=== PATIENT | female | born 1965 | race Caucasian/White ===

== ENCOUNTER → 2016-04-11 | Outpatient (CLI) | payer OTHER ==
[~2016-04-11] MED LIST: ASPI-84 PO; LISI-556 PO; MTP25TSR PO; OMEP20CA6 PO
--- NOTE | 2016-04-14 11:49 | Diagnostic Imaging Report ---
EXAMINATION: Bilateral screening mammogram with a Computer Aided Detection (CAD) system. INDICATION: Screening. PERSONAL HISTORY: No current complaints stated on the questionnaire. COMPARISON: 02/02/2015. FINDINGS: The breasts are composed of heterogeneously dense parenchyma which may decrease mammographic sensitivity. The parenchymal densities are slightly less dense compared to the previous exams overall. There are scattered punctate calcifications seen. There is question of an architectural distortion seen in the lateral aspect of the left breast. The change in appearance could be secondary to the decreased parenchymal density rather than true new development of a lesion. The right breast demonstrates no definite change. IMPRESSION: Focal compression view and ultrasound evaluation would be recommended for questioned architectural distortion in the lateral inferior aspect of the left breast. ACR BI-RADS Category 0: Incomplete. (Needs additional imaging evaluation). Result letter will be mailed to the patient. Note: At least 10% of breast cancer is not imaged by mammography. Dictated by: Dictated on workstation # [id number]
== END ==
LOC: RAD 13:13
PROVIDERS: ATTEND Obstetrics & Gynecology
DX: Z12.31 Encounter for screening mammogram for malignant neoplasm of breast (principal)

== ENCOUNTER → 2016-04-29 | Outpatient (CLI) | payer OTHER ==
--- OUTSIDE RECORDS SUMMARY | 2016-04-29 07:39 | XMS REPORT | Continuity of Care Document ---
Author Author [facility] Organization [facility] Address Unknown Phone Unavailable Allergies Active Description Code Type Severity Reaction Onset Reported/Identified Relationship to Patient Clinical Status Yes No Known Drug Allergies [id number] Drug Allergy Unknown N/ A 12/16/2009 Medications Problems Date Dx Coded Attending Type Code Diagnosis Diagnosed By 01/08/2015 TYRA XIAO, PIA Hernandez Ot M25.511 02/16/2015 SHELTON PAULA Ot Z12.31 04/11/2016 Ot V76.12 OTH SCREEN MAMMO-MALIGN NEOPLASM OF [place] 04/11/2016 TIFFANIE SANCHEZ DO Ot V76.12 OTH SCREEN MAMMO-MALIGN NEOPLASM OF [place] 04/11/2016 SHELTON PAULA Ot V76.12 OTH SCREEN MAMMO-MALIGN NEOPLASM OF [place] 04/11/2016 PIA MARY MD Ot M25.511 PAIN IN RIGHT SHOULDER 04/11/2016 SHELTON PAULA Ot Z12.31 ENCNTR SCREEN MAMMOGRAM FOR MALIGNANT NE 04/14/2016 TIFFANIE SANCHEZ DO Ot Z12.31 ENCNTR SCREEN MAMMOGRAM FOR MALIGNANT NE 04/14/2016 TIFFANIE SANCHEZ DO Ot Z12.31 ENCNTR SCREEN MAMMOGRAM FOR MALIGNANT NE Procedures Results Encounters ACCT No. Visit Date/Time Discharge Status Pt. Type Provider Facility Loc./Unit Complaint [id number] 02/02/2015 14:16:00 2014 23:59:59 CLS Outpatient SHELTON PAULA [facility] RAD SCREENING [id number] 12/22/2014 12:08:00 2014 23:59:59 CLS Outpatient PIA MARY MD [facility] RAD PAIN R SHOULDER [id number] 12/23/2013 07:26:00 2013 23:59:59 CLS Outpatient SHELTON PAULA [facility] RAD ROUTINE [id number] 09/17/2012 07:27:00 2012 23:59:59 CLS Outpatient TIFFANIE SANCHEZ DO [facility] RAD SCREENING [id number] 04/11/2016 13:13:00 ACT Outpatient TIFFANIE SANCHEZ DO [facility] RAD SCREENING [id number] 06/13/2011 15:29:00 Document Registration
--- NOTE | 2016-04-29 18:53 | Diagnostic Imaging Report ---
EXAMINATION: Left breast diagnostic mammogram. The current study was also evaluated with a Computer Aided Detection (CAD) system. INDICATION: Asymmetries along the outer and inferior aspects of the left breast. FINDINGS: Persistent asymmetry along the outer aspect of the left breast is seen with focal compression view. At the inferior aspect of the left breast, compression views demonstrate no definitive underlying lesion. IMPRESSION: Persistent asymmetry in the outer aspect of the left breast is seen. Ultrasound evaluation is pending. ACR BI-RADS Category 0: Incomplete. (Needs additional imaging evaluation). Result letter will be mailed to the patient. Note: At least 10% of breast cancer is not imaged by mammography. Dictated by: Dictated on workstation # [id number]
--- NOTE | 2016-04-29 19:01 | Diagnostic Imaging Report ---
Left breast ultrasound. INDICATION: Lateral and inferior breast asymmetries seen on mammography. FINDINGS: The 4 quadrants under evaluation of the left breast was scanned with no underlying abnormality seen. IMPRESSION: Negative study. Asymmetry seen in the outer aspect of the left breast is likely related to summation artifact of the relatively dense background parenchyma. Followup mammogram in 6 months is recommended to ensure no adverse development. ACR BI-RADS Category 3: Probably benign findings. Dictated by: Dictated on workstation # [id number]
== END ==
LOC: RAD 07:35
PROVIDERS: ATTEND Obstetrics & Gynecology
DX: R92.8 Other abnormal and inconclusive findings on diagnostic imaging of breast (principal)
CPT/HCPCS: 76641

== ENCOUNTER → 2016-05-02 | Outpatient (CLI) | payer OTHER ==
--- OUTSIDE RECORDS SUMMARY | 2016-05-02 12:46 | XMS REPORT | Continuity of Care Document ---
Author Author [facility] Organization [facility] Address Unknown Phone Unavailable Allergies Active Description Code Type Severity Reaction Onset Reported/Identified Relationship to Patient Clinical Status Yes No Known Drug Allergies [id number] Drug Allergy Unknown N/ A 12/16/2009 Medications Problems Date Dx Coded Attending Type Code Diagnosis Diagnosed By 01/08/2015 TYRA XIAO, PIA Hernandez Ot M25.511 02/16/2015 SHELTON PAULA Ot Z12.31 04/11/2016 Ot V76.12 OTH SCREEN MAMMO-MALIGN NEOPLASM OF [place] 04/11/2016 TIFFANIE SANCHEZ DO Ot V76.12 OTH SCREEN MAMMO-MALIGN NEOPLASM OF [place] 04/11/2016 SHELTON PAULA Ot V76.12 OTH SCREEN MAMMO-MALIGN NEOPLASM OF [place] 04/11/2016 TYRA XIAO, PIA Hernandez Ot M25.511 PAIN IN RIGHT SHOULDER 04/11/2016 SHELTON PAULAP Ot Z12.31 ENCNTR SCREEN MAMMOGRAM FOR MALIGNANT NE 04/14/2016 TIFFANIE SANCHEZ DO C Ot Z12.31 ENCNTR SCREEN MAMMOGRAM FOR MALIGNANT NE 04/14/2016 ROSSANA SANCHEZ DOA C Ot Z12.31 ENCNTR SCREEN MAMMOGRAM FOR MALIGNANT NE 04/29/2016 Ot V76.12 OTH SCREEN MAMMO-MALIGN NEOPLASM OF [place] 04/29/2016 TIFFANIE SANCHEZ DO C Ot V76.12 OTH SCREEN MAMMO-MALIGN NEOPLASM OF [place] 04/29/2016 SHELTON PAULA Ot V76.12 OTH SCREEN MAMMO-MALIGN NEOPLASM OF [place] 04/29/2016 TYRA XIAO, PIA Hernandez Ot M25.511 PAIN IN RIGHT SHOULDER 04/29/2016 SHELTON PAULAP Ot Z12.31 ENCNTR SCREEN MAMMOGRAM FOR MALIGNANT NE 04/29/2016 TIFFANIE SANCHEZ DO Ot Z12.31 ENCNTR SCREEN MAMMOGRAM FOR MALIGNANT NE 04/30/2016 TIFFANIE SANCHEZ DO Ot R92.8 OTH ABN AND INCONCLUSIVE FINDINGS ON DX Procedures Results Encounters ACCT No. Visit Date/Time Discharge Status Pt. Type Provider Facility Loc./Unit Complaint [id number] 02/02/2015 14:16:00 2014 23:59:59 CLS Outpatient SHELTON PAULA [facility] RAD SCREENING [id number] 12/22/2014 12:08:00 2014 23:59:59 CLS Outpatient PIA MARY MD [facility] RAD PAIN R SHOULDER [id number] 12/23/2013 07:26:00 2013 23:59:59 CLS Outpatient SHELTON PAULA [facility] RAD ROUTINE [id number] 09/17/2012 07:27:00 2012 23:59:59 CLS Outpatient TIFFANIE SANCHEZ DO [facility] RAD SCREENING [id number] 04/29/2016 07:35:00 ACT Outpatient TIFFANIE SANCHEZ DO [facility] RAD ABNORMAL MAMMO [id number] 04/11/2016 13:13:00 ACT Outpatient TIFFANIE SANCHEZ DO [facility] RAD SCREENING [id number] 06/13/2011 15:29:00 Document Registration
--- NOTE | 2016-05-05 10:52 | ECHOCARDIOGRAPHY REPORT ---
PROCEDURE PHYSICIAN: BRADEN CADE DATE OF PROCEDURE: 05/02/2016 TWO DIMENSIONAL ECHOCARDIOGRAM REPORT PRIMARY PHYSICIAN: OTHER PHYSICIAN: REFERRING PHYSICIAN: Dr. Hutchison ORDERING PHYSICIAN: INDICATION FOR THE PROCEDURE: Hypertension. MEASUREMENTS DERIVED VALUES LV DIAMETER (LAX) NORMALS NORMALS Diastolic 4.5 (3.6-5.2) Eject. Fract. 60% (60%+/-6%) Systolic (2.3-3.9) Diastolic Vol. % Shortening (0.22-0.42) Systolic Vol. Aortic Root IVS THICKNESS Diastolic 0.8 (0.6-1.1) LVPW THICKNESS Diastolic 0.9 (0.6-1.1) LA DIAMETER Systolic 3.2 (2.1-3.7) FINDINGS: 1. Technical quality is good. 2. The left ventricle is normal in size with normal contractility. Systolic function appeared to be normal. Estimated ejection fraction 60%. 3. The left atrium is normal in size. No clot or thrombus were seen within the left atrium. 4. The right atrium and right ventricle are normal in size. No clot or thrombus were seen within the right side. 5. Mitral valve is normal in morphology with mild mitral regurgitation noted by color Doppler flow. No mitral valve prolapse. No mitral valve stenosis. 6. Aortic valve is trileaflet with normal opening and closing pattern. No significant aortic stenosis or regurgitation was seen. 7. Tricuspid valve is normal in morphology with mild tricuspid regurgitation noted by color Doppler flow. Doppler across tricuspid valve estimated pulmonary artery pressure of 17+ right atrial pressure. 8. Pulmonic valve is functioning normally. 9. No pericardial effusion. IN CONCLUSION: 1. Normal left ventricular size and systolic function. Estimated ejection fraction 60%. 2. Mild mitral and tricuspid regurgitation. 3. Estimated pulmonary artery pressure of 25 mmHg. Job ID: [id number] Dictated Date: 05/05/2016 08:05:36 Adjunct Teacher Date: 05/05/2016 10:49:16 / [email or web address]
== END ==
LOC: CARD 12:44
PROVIDERS: ATTEND Physician Assistant
DX: K21.9 Gastro-esophageal reflux disease without esophagitis (principal); I10 Essential (primary) hypertension; E78.2 Mixed hyperlipidemia; R00.2 Palpitations
CPT/HCPCS: 93306

== ENCOUNTER → 2016-09-04 | Outpatient (CLI) | payer OTHER | DX: R51 Headache (principal) ==

== ENCOUNTER 2016-10-21 08:49 | Outpatient (CLI) | payer OTHER ==
[~2016-10-21] VITALS: Ht 160 cm; Wt 64.0 kg
[2016-10-22] MEDS ORDERED: VITA150T PO ×2 (09:32)
[2016-10-22] MEDS ORDERED: LEVO125T6 PO ×2 (09:32)
[2016-10-22] MEDS ORDERED: CHOL10007 PO ×2 (09:32)
[2016-10-22] MEDS ORDERED: KRIL500C PO ×2 (09:32)
[2016-10-22] MEDS ORDERED: FENO54TA PO ×2 (09:32)
[2016-10-22] MEDS ORDERED: MAGN250T35 PO ×2 (09:32)
[2016-10-22] MEDS ORDERED: CETI5TAB6 PO ×2 (09:32)
== END 2016-10-21 12:44 ==
LOC: PREOP 08:49
PROVIDERS: ATTEND Surgery
DX: Z01.818 Encounter for other preprocedural examination (principal); Z12.11 Encounter for screening for malignant neoplasm of colon; K21.9 Gastro-esophageal reflux disease without esophagitis

== ENCOUNTER 2016-10-22 09:00 | Day surgery (SDC) | payer OTHER ==
[~2016-10-22] VITALS: Ht 160 cm; Wt 64.0 kg
[2016-10-22] MEDS ORDERED: LIDOCAINE JELLY 2% (XYLOCAINE) 5 ML TUBE MM PRN (09:15)
[2016-10-22] MEDS ORDERED: HURRICAINE EXT TUBE (BENZOCAINE) XX PRN (09:15)
[2016-10-22 09:25] VITALS: BP 151/99
[2016-10-22] MEDS ORDERED: KRIL500C PO ×2 (09:32)
[2016-10-22] MEDS ORDERED: CETI5TAB6 PO ×2 (09:32)
[2016-10-22] MEDS ORDERED: VITA150T PO ×2 (09:32)
[2016-10-22] MEDS ORDERED: FENO54TA PO ×2 (09:32)
[2016-10-22] MEDS ORDERED: LEVO125T6 PO ×2 (09:32)
[2016-10-22] MEDS ORDERED: MAGN250T35 PO ×2 (09:32)
[2016-10-22] MEDS ORDERED: CHOL10007 PO ×2 (09:32)
[2016-10-22] MEDS: NS IV 500 ML 500 ML IV PRN ×2 (09:39→12:00)
--- NOTE | 2016-10-22 10:13 | Conscious Sedation/ASA ---
Conscious Sedation Pre-Proced Time Reviewed: 09:30 ASA Class: 2 Airway Mallampati Classification: (tangirnaq appropriate class) I. II. III, IV Lungs Heart ASA score ASA 1: a normal healthy patient ASA 2: a patient with a mild systemic disease (mid diabetes, controlled hypertension, obesity ASA 3: a patient with a severe systemic disease that limits activity (angina , COPD, prior Myocardial infarction) ASA 4: a patient with an incapacitating disease that is a constant threat to life (CHF, renal failure) ASA 5: a moribund patient not expected to survive 24 hrs. (ruptured aneurysm) ASA 6: a declared brain patient whose organs are being harvested. For emergent operations, add the letter E after the classification Grade 2 Sedation Plan: Analgesia, Amnesia, Plan communicated to team members, Discussed options with patient/fam, Discussed risks with patient/fam Note The patient is an appropriate candidate to undergo the planned procedure, sedation, and anesthesia. The patient immediately re-assessed prior to indication. MICHAEL HAILE MD Oct 22, 2016 10:13 am
--- NOTE | 2016-10-22 10:14 | Progress Note-Pre Operative ---
Pre-Operative Progress Note H&P Reviewed The H&P was reviewed, patient examined and no changes noted. Date Seen by Provider: Oct 22, 2016 Time Seen by Provider: :30 Date H&P Reviewed: Oct 22, 2016 Time H&P Reviewed: :30 Pre-Operative Diagnosis: GERD, screening MICHAEL HAILE MD Oct 22, 2016 10:14 am
[2016-10-22] MEDS ORDERED: HYDROcodone/APAP 5 MG/325 MG (LORTAB) TAB PO PRN (10:15)
[2016-10-22] MEDS ORDERED: morphine INJ 10 MG/ML 1ML (SYR OR VIAL) IV PRN (10:15)
[2016-10-22] MEDS ORDERED: ACETAMINOPHEN 325 MG TABLET/CAPLET (TYLENOL) PO PRN (10:15)
[2016-10-22] MEDS ORDERED: ONDANSETRON 4 MG/2 ML (SDV) Z0FRAN IV PRN (10:15)
[2016-10-22] MEDS ORDERED: fentaNYL INJECTION 100 MCG/2 ML AMP ONE ×2 (10:41→10:42)
[2016-10-22] MEDS ORDERED: LIDOCAINE JELLY 2% (XYLOCAINE) 5 ML TUBE ONE (10:42)
[2016-10-22] MEDS ORDERED: MIDAZOLAM 2 MG/2 ML (VERSED) VIAL ONE ×6 (10:42→11:47)
[2016-10-22] MEDS ORDERED: HURRICAINE EXT TUBE (BENZOCAINE) ONE (10:42)
[2016-10-22] MEDS: fentaNYL INJECTION 100 MCG/2 ML AMP IVP PRN ×4 (11:08→11:40)
[2016-10-22] MEDS: MIDAZOLAM 2 MG/2 ML (VERSED) VIAL IVP PRN ×6 (11:09→11:50)
[2016-10-22] MEDS ORDERED: NS IV 500 ML 500 ML ONE (11:35)
[2016-10-22 12:20] VITALS: BP 120/79
--- NOTE | 2016-10-22 12:27 | Progress Note-Post Operative ---
Post-Operative Progess Note Surgeon (s)/Basketball Coach (s) Surgeon MICHAEL HAILE MD Basketball Coach: none Pre-Operative Diagnosis GERD, screening Post-Operative Diagnosis cricopharygeal spasm, reflux esophagitis(class B), small HH(2cm), mild gastritis, multiple HP gastric polyps. chronic stage 2 ext and int hemorrhoids. Procedure & Operative Findings Date of Procedure 10/22/16 Procedure Performed/Findings EGD with bx. Colonoscopy. Anesthesia Type CS Estimated Blood Loss Estimated blood loss (mL): minimal Specimens/Packing Specimens Removed GE jxn, antrum MICHAEL HAILE MD Oct 22, 2016 12:27 pm
--- NOTE | 2016-10-22 12:29 | Discharge Inst-Surgical ---
D/C Lap Instructions-MIC Follow Up PRN Activity as tolerated High Fiber Diet 25g or more per day Avoid Alcohol, Caffeine, Spicy Reliance and Acid foods. Drink 64 fluid oz or more of fluids per day. Symptoms to Report: Fever over 101 degree F, Nausea/Vomiting If any problems/questions: Contact your physician or go to Emergency Room MICHAEL HAILE MD Oct 22, 2016 12:29 pm
[2016-10-22 12:50] VITALS: BP 144/82
[2016-10-22 13:15] VITALS: BP 144/82
--- NOTE | 2016-10-22 13:26 | OPERATIVE REPORT ---
DATE OF SERVICE: 10/22/2016 ATTENDING PRIMARY CARE PHYSICIAN: Dr. Hutchison. PREOPERATIVE DIAGNOSIS: Dysphagia, gastroesophageal reflux disease, screening colonoscopy. POSTOPERATIVE DIAGNOSIS: Cricopharyngeal spasm. Reflux esophagitis class B, small hiatal hernia 2 cm in size, mild gastritis, multiple small hyperplastic polyps of the stomach. Chronic stage II external and internal hemorrhoids. PROCEDURE: EGD with biopsy, colonoscopy. SURGEON: Dr. Haile. ANESTHESIA: Conscious sedation. ESTIMATED BLOOD LOSS: Minimal. FINDINGS: 1. Cricopharyngeal spasms based on the tone of the musculature in this area and time for relaxation to allow for the endoscope to go into the esophagus. Reflux esophagitis class B, small hiatal hernia approximately 2 cm in size, mild gastritis with multiple small hyperplastic polyps each less than 2 mm in size. 2. Colonoscopy, chronic stage II external and internal hemorrhoids. The remainder of the rectum and colon were normal. DISPOSITION: The patient tolerated the procedure well. The patient is a 51-year-old female in need of an EGD and colonoscopy. She has not had a colonoscopy up to this point in her life. She reports that she does have 1 to 2 bowel movements daily and she does have hard or well formed stools in the past. She also does report hemorrhoidal irritation as well as a very small amount of self-limited blood per rectum. She does not report any family history of colon cancer. She also has had a history of gastroesophageal reflux disease as well as pharyngeal irritation. She underwent an EGD in 2008 and found to have a patulous lower esophageal sphincter, reflux esophagitis as well as a mild gastritis. She was started on Nexium and her symptoms have improved. She did undergo an upper GI contrast study which did show a prominent cricopharyngeus muscle; however, no signs of obstruction. She does not report any nausea or vomiting as well as no hematemesis, no coffee ground emesis. DESCRIPTION OF PROCEDURE: The patient was brought to the endoscopy suite, laid in the left lateral decubitus position. After adequate IV pain and sedative medications and conscious sedation anesthesia, the mouthpiece was applied. The endoscope was placed in the mouth, visualizing the pharynx and hypopharyngeal region. Vocal cords, epiglottis and vallecula identified and appeared to be normal. Multiple attempts were made to pass the endoscope passed the cricopharyngeus muscle of the esophageal opening; however, due to spasms, this did take an extended period of time. With gentle pressure, as well as time, as well as increased anxiolytic, we were able to pass through this without any difficulty. The endoscope was then advanced to the first, second and third portions of the esophagus. At the level of the GE junction, a reflux esophagitis class B identified. A biopsy was taken with forceps with visualization of good hemostasis. The endoscope was then easily advanced in the stomach. The endoscope retroflexed, visualizing a small hiatal hernia approximately 2 cm in size. There was a mild severity gastritis with multiple small gastric polyps, 1 to 2 mm in size. A biopsy was taken of one of these using forceps with visualization of good hemostasis. The endoscope was then advanced to the pylorus and the first and second portions of the duodenum, which appeared normal with no distal obstructions. The endoscope was then slowly withdrawn taking a second look and suctioning of the residual air with no additional findings. The patient tolerated this portion of the procedure well. For her cricopharyngeal spasms, we will recommend medical management with small and more frequent meals, avoidance of eating at night as well as head elevation. If she does have recurrent problems, we may refer her to ENT versus a speech pathologist for deglutition training. Under the same conscious sedation anesthesia, we then proceeded with the colonoscopy portion of the procedure. A digital rectal examination was performed which showed chronic stage II external and internal hemorrhoids with some mild irritation of the internal hemorrhoidal cushion most likely due to the colonic prep. No active bleeding was identified. Normal sphincter tone was felt and there were no palpable masses. The endoscope was then intubated to the anus and rectum and gently insufflated. The endoscope was then advanced through the valves of Tala[place]a in the rectum with no polyps or any neoplasms identified. We then proceeded through the sigmoid colon where no diverticulosis identified. The endoscope was then advanced to the descending, transverse and ascending colon to the cecum. These segments were normal. There were no polyps or any neoplasms identified throughout the colon or rectum. The endoscope was then slowly withdrawn taking a second look and suctioning residual air with no additional findings. The patient tolerated the procedure well. We will have him her continue with medical management with a high fiber diet with at least 25 to 30 grams of fiber per day as well as at least 64 fluid ounces of water daily to promote soft stools on a daily basis. She does not need another colonoscopy for another 10 years. Job ID: [id number] DocumentID: [id number] Dictated Date: 10/22/2016 12:16:55 Card Boxer Date: 10/22/2016 13:25:58 Dictated By: MICHAEL HAILE MD
== END 2016-10-22 13:15 | disposition home or self-care (01) ==
LOC: ENDO 09:00
PROVIDERS: ATTEND Surgery
DX: Z12.11 Encounter for screening for malignant neoplasm of colon (principal); K21.0 Gastro-esophageal reflux disease with esophagitis; K44.9 Diaphragmatic hernia without obstruction or gangrene; K29.70 Gastritis, unspecified, without bleeding; K31.7 Polyp of stomach and duodenum; K64.9 Unspecified hemorrhoids; J39.2 Other diseases of pharynx; I10 Essential (primary) hypertension; E03.9 Hypothyroidism, unspecified; Z79.899 Other long term (current) drug therapy
CPT/HCPCS: 84703

== ENCOUNTER → 2016-11-25 | Outpatient (CLI) | payer OTHER ==
[~2016-11-25] MED LIST changes: +CETI5TAB6 PO; +CHOL10007 PO; +FENO54TA PO; +KRIL500C PO; +LEVO125T6 PO; +MAGN250T35 PO; +VITA150T PO
--- NOTE | 2016-11-25 20:12 | Diagnostic Imaging Report ---
Left breast diagnostic mammogram with tomogrpahy. INDICATION: Asymmetry along the outer aspect of the left breast. The current study was also evaluated with a Computer Aided Detection (CAD) system. COMPARISON: 04/29/2016. FINDINGS: The previously seen asymmetry in the outer aspect of the left breast appears less prominent on the current exam with no definite underlying mass. No adverse development. IMPRESSION: Less prominent asymmetry along the outer aspect of the left breast seen in the CC projection is favored to be related to summation artifact of background dense parenchyma. Another follow-up when the patient is due for her bilateral mammogram in March 2017 is recommended to ensure further stability. ACR BI-RADS Category 3: Probably benign findings. Result letter will be mailed to the patient. Note: At least 10% of breast cancer is not imaged by mammography. Dictated by: Dictated on workstation # [id number]
== END ==
LOC: RAD 08:38
PROVIDERS: ATTEND Obstetrics & Gynecology
DX: R92.8 Other abnormal and inconclusive findings on diagnostic imaging of breast (principal)

== ENCOUNTER → 2017-01-28 | Outpatient (CLI) | payer OTHER ==
--- NOTE | 2017-01-28 17:23 | STRESS TEST ---
DATE OF SERVICE: 01/28/2017 EXERCISE STRESS ECHOCARDIOGRAM REFERRING PHYSICIAN: . INDICATION: Hypertension. Baseline heart rate is 89, baseline blood pressure 134/94. Baseline EKG is sinus rhythm with no ischemic changes. In summary, the patient started exercising with a baseline heart rate, blood pressure and EKG mentioned above. She was able to exercise for 6 minutes and 45 seconds on standard Crescencio protocol, achieving maximum heart rate of 174, which is over 100% of maximum expected heart rate. With peak exercise level EKG was showing minimal nondiagnostic changes. During recovery, heart rate and blood pressure returned to baseline. EKG returned to baseline. Echocardiographic images were acquired and reviewed in the parasternal long axis, parasternal short axis, apical four chamber and apical two chamber views. Images were evaluated after contrast injection, there is normal left ventricular size with normal contractility with no ischemic changes. CONCLUSION: 1. Fair exercise tolerance. A total of 6 minutes and 45 seconds on standard Crescencio protocol and a total of 8.1 METS achieving over 100% of maximum expected heart rate. 2. Appropriate heart rate and blood pressure response to exercise returned to baseline during recovery. 3. Minimal nondiagnostic EKG changes with exercise returned to baseline during recovery. 4. Normal echocardiographic images at rest and with peak stress images with no ischemic changes, contrast was injected. Job ID: [id number] DocumentID: [id number] Dictated Date: 01/28/2017 15:59:40 Feather Baler Date: 01/28/2017 17:23:02 Dictated By: BRADEN CADE MD
== END ==
LOC: CARD 09:58
PROVIDERS: ATTEND Physician Assistant
DX: I10 Essential (primary) hypertension (principal); R00.2 Palpitations; E78.2 Mixed hyperlipidemia

== ENCOUNTER 2017-03-06 13:01 | Outpatient (RCR) | payer OTHER | END 2017-03-06 13:46 | disposition home or self-care (01) | PROVIDERS: ATTEND Family Medicine | DX: M54.2 Cervicalgia (principal); M54.5 Low back pain; M54.6 Pain in thoracic spine; M62.830 Muscle spasm of back ==

== ENCOUNTER → 2017-05-25 | Outpatient (CLI) | payer OTHER ==
--- NOTE | 2017-05-25 18:05 | Diagnostic Imaging Report ---
EXAMINATION: Bilateral diagnostic mammogram. The current study was also evaluated with a Computer Aided Detection (CAD) system. This study was compared to the prior exams of 11/25/2016, 04/11/2016, 02/02/2015, and 12/23/2013. At this time, there are no current complaints. FINDINGS: The previous diagnostic mammogram of the left breast performed on 11/25/2016 noted a small asymmetry in the outer aspect of the left breast. That finding is not as conspicuous on this exam. I do suspect it is secondary to fibroglandular tissue. The fibroglandular tissue in both breasts is heterogeneously dense. This does limit the sensitivity of this exam. Overall, there does not appear to have been any significant change. There is no primary or secondary sign of malignancy noted. IMPRESSION: 1. There is no evidence for malignancy. 2. The patient should have her annual bilateral screening mammogram on schedule in May of 2018. ACR BI-RADS Category 1: Negative. Result letter will be mailed to the patient. Note: At least 10% of breast cancer is not imaged by mammography. Dictated by: Dictated on workstation # [id number]
== END ==
LOC: RAD 08:14
PROVIDERS: ATTEND Obstetrics & Gynecology
DX: R92.8 Other abnormal and inconclusive findings on diagnostic imaging of breast (principal); N95.0 Postmenopausal bleeding; N88.2 Stricture and stenosis of cervix uteri
CPT/HCPCS: 77066

== ENCOUNTER → 2017-05-26 | Outpatient (CLI) | payer OTHER ==
--- NOTE | 2017-05-26 18:47 | Diagnostic Imaging Report ---
EXAMINATION: Pelvic ultrasound. INDICATION: Postmenopausal bleeding. COMPARISON: There are no prior studies available for comparison. FINDINGS: The uterus is not enlarged measuring 8.5 x 5.3 x 4.7 cm. The endometrial lining is not thickened measuring 4 mm. There is no focal mass involving the uterus to suggest a fibroid. The cervix does seem somewhat prominent, but there is no mass identified. Even so, correlation with the patient's physical exam would be recommended. Neither ovary was identified. There is no pelvic mass or free fluid collection noted. IMPRESSION: 1. The uterus is not enlarged, and there is no focal mass involving the uterus to suggest a fibroid. The cervix does seem somewhat prominent, however. Clinical followup is recommended. 2. There is no acute pelvic abnormality noted. Dictated by: Dictated on workstation # [id number]
== END ==
LOC: RAD 09:43
PROVIDERS: ATTEND Obstetrics & Gynecology
DX: N95.0 Postmenopausal bleeding (principal); N88.2 Stricture and stenosis of cervix uteri; R92.8 Other abnormal and inconclusive findings on diagnostic imaging of breast
CPT/HCPCS: 76830; 76856

== ENCOUNTER → 2018-06-18 | Outpatient (CLI) | payer OTHER ==
--- NOTE | 2018-06-18 17:24 | Diagnostic Imaging Report ---
INDICATION: Routine screening. COMPARISON: Prior mammogram from 05/25/2017 and 04/11/2016. EXAMINATION: 2D and 3D bilateral screening mammography was performed with CAD. The current study was also evaluated with a Computer Aided Detection (CAD) system. FINDINGS: Both breasts remain heterogeneously dense, limiting the sensitivity of mammography. No mass or malignant appearing microcalcifications are seen. Axillae are unremarkable. IMPRESSION: No mammographic features suspicious for malignancy are identified. ACR BI-RADS Category 1: Negative. Result letter will be mailed to the patient. Note: At least 10% of breast cancer is not imaged by mammography. Dictated on workstation # [id number]
== END ==
LOC: RAD 08:10
PROVIDERS: ATTEND Nurse Practitioner
DX: Z12.31 Encounter for screening mammogram for malignant neoplasm of breast (principal)
CPT/HCPCS: 77067

== ENCOUNTER → 2019-10-07 | Outpatient (CLI) | payer OTHER ==
--- NOTE | 2019-10-10 08:58 | Diagnostic Imaging Report ---
INDICATION: Routine screening. COMPARISON: 06/18/2018 and 05/25/2017. TECHNIQUE: 2D and 3D bilateral screening mammography was performed with CAD. FINDINGS: Both breasts remain heterogeneously dense, limiting the sensitivity of mammography. The parenchymal pattern is stable. No mass or malignant appearing microcalcifications are seen. The axillae are unremarkable. IMPRESSION: No mammographic features suspicious for malignancy are identified. ACR BI-RADS Category 1: Negative. Result letter will be mailed to the patient. Note: At least 10% of breast cancer is not imaged by mammography. Dictated by: Dictated on workstation # [id number]
== END ==
LOC: RAD 14:30
PROVIDERS: ATTEND Obstetrics & Gynecology
DX: Z12.31 Encounter for screening mammogram for malignant neoplasm of breast (principal)
CPT/HCPCS: 77063; 77067

== ENCOUNTER → 2019-12-20 | Outpatient (CLI) | payer BC, OTHER | LOC: CARD 10:00 | PROVIDERS: ATTEND Internal Medicine Cardiovascular Disease | DX: K21.9 Gastro-esophageal reflux disease without esophagitis (principal); I10 Essential (primary) hypertension; E78.2 Mixed hyperlipidemia; R00.2 Palpitations | CPT/HCPCS: 93306 ==

== ENCOUNTER → 2020-03-20 | Outpatient (CLI) | payer BC, OTHER ==
[2020-03-20 08:40] LABS: ALANINE AMINOTRANSFERASE 28 U/L (0-55); ALBUMIN 4.2 GM/DL (3.2-4.5); ALKALINE PHOSPHATASE 50 U/L (40-136); BILIRUBIN,TOTAL 0.3 MG/DL (0.1-1.0); BUN/CREATININE RATIO 17; CALCIUM 9.1 MG/DL (8.5-10.1); CARBON DIOXIDE 24 MMOL/L (21-32); CHLORIDE 106 MMOL/L (98-107); CHOLESTEROL 156 MG/DL (< 200); CREATININE SERUM 0.83 MG/DL (0.60-1.30); GFR ESTIMATED > 60; GLUCOSE 100 MG/DL (70-105); HDL CHOLESTEROL 44 MG/DL (40-60); POTASSIUM 4.1 MMOL/L (3.6-5.0); SODIUM 139 MMOL/L (135-145); TOTAL PROTEIN 7.2 GM/DL (6.4-8.2); TRIGLYCERIDES 141 MG/DL (<150); VLDL CHOLESTEROL 28 MG/DL (5-40)
== END ==
LOC: LAB 07:44
PROVIDERS: ATTEND Internal Medicine Cardiovascular Disease
DX: E78.2 Mixed hyperlipidemia (principal)
CPT/HCPCS: 36415; 80053; 80061

== ENCOUNTER → 2020-10-22 | Outpatient (CLI) | payer BC ==
--- NOTE | 2020-10-22 16:11 | Diagnostic Imaging Report ---
INDICATION: Routine screening. COMPARISON is made with prior mammograms from 10/07/2019 and 06/18/2018. 2-D and 3-D bilateral screening mammography was performed with CAD. Both breasts are heterogeneously dense, limiting the sensitivity of mammography. The parenchymal pattern is stable. No mass or malignant-appearing microcalcifications are seen. Axillae are unremarkable. IMPRESSION: BI-RADS Category 1 No mammographic features suspicious for malignancy are identified. ACR BI-RADS Category 1: Negative. Result letter will be mailed to the patient. Note: At least 10% of breast cancer is not imaged by mammography. Dictated by: Dictated on workstation # [id number]
== END ==
LOC: RAD 14:45
PROVIDERS: ATTEND Surgery
DX: Z12.31 Encounter for screening mammogram for malignant neoplasm of breast (principal)
CPT/HCPCS: 77063; 77067

== ENCOUNTER 2021-07-26 13:09 | Outpatient (CLI) | payer OTHER | END 2021-07-26 13:25 | disposition home or self-care (01) | LOC: SLEEP 13:09 | PROVIDERS: ATTEND Internal Medicine Cardiovascular Disease | DX: G47.33 Obstructive sleep apnea (adult) (pediatric) (principal); G47.10 Hypersomnia, unspecified; I10 Essential (primary) hypertension; E78.2 Mixed hyperlipidemia; I65.23 Occlusion and stenosis of bilateral carotid arteries; R00.2 Palpitations | CPT/HCPCS: G0399 ==

== ENCOUNTER → 2021-11-01 | Outpatient (CLI) | payer OTHER ==
--- NOTE | 2021-11-01 11:07 | Diagnostic Imaging Report ---
Indication: Routine screening. Comparison is made with prior mammograms from 10/22/2020 and 10/07/2019. 2-D and 3-D bilateral screening mammography was performed with CAD. Both breasts are heterogeneously dense, limiting the sensitivity of mammography. The parenchymal pattern is stable. No mass or malignant-appearing microcalcifications are seen. Axillae are unremarkable. IMPRESSION: BI-RADS Category 1 No mammographic features suspicious for malignancy are identified. ACR BI-RADS Category 1: Negative. Result letter will be mailed to the patient. Note: At least 10% of breast cancer is not imaged by mammography. Dictated by: Dictated on workstation # [id number]
== END ==
LOC: RAD 07:44
PROVIDERS: ATTEND Surgery
DX: Z12.31 Encounter for screening mammogram for malignant neoplasm of breast (principal)
CPT/HCPCS: 77063; 77067

== ENCOUNTER → 2022-01-22 | Outpatient (CLI) | payer OTHER ==
[~2022-01-22] MED LIST changes: +CATHETER FLUSH 10 ML SYR IVP PRN
[2022-01-22 09:07] VITALS: BP 149/84
--- NOTE | 2022-01-22 15:07 | Cardiology Stress Test Report ---
Stress Test Report Date of Procedure/Referring: Date of Procedure: Jan 22, 2022 PCP Pia Mary MD Admitting Physician Admitting Physician: Attending Physician: Angela Veloz Baseline Heart Rate: 66 Baseline Blood Pressure: Blood Pressure Systolic: 149 Blood Pressure Diastolic: 84 Vital Signs Date Time Temp Pulse Resp B/P (MAP) Pulse Ox O2 Delivery O2 Flow Rate FiO2 01/22/22 09:07 75 16 149/84 (105) 98 Room Air Baseline Vital Signs Vital Signs Date Time Temp Pulse Resp B/P (MAP) Pulse Ox O2 Delivery O2 Flow Rate FiO2 01/22/22 09:07 75 16 149/84 (105) 98 Room Air Baseline EKG: Baseline EKG: NSR Summary: After explaining the procedure and details to the patient, she signed the conse nt and was brought to the stress nuclear laboratory. Patient exercised on standard Crescencio protocol, EKG, heart rate and blood pressure were monitored continuously, resting and stress doses of radio tracer were injected, imaging was acquired and reviewed in the short axis, horizontal long axis and vertical long axis views Patient was able to exercise for a total of 7 minutes on Crescencio protocol, METs 8.5 Maximum heart rate 156 Maximum blood pressure 196/92 Stress EKG, Minimal nondiagnostic changes Recovery EKG, Return to baseline TID: 0.96 SSS: 2 SDS: 2 EF: 63 Conclusion: 1. Good exercise tolerance for a total of 7 minutes on standard Crescencio protocol, 8.5 METS achieving 95% of maximal expected heart rate 2. Appropriate heart rate response to exercise with hypertensive response to exercise return to baseline during recovery 3. Nondiagnostic EKG changes with exercise return to baseline during recovery 4. No ischemia or infarction noted on SPECT images 5. Normal left ventricular size, ejection fraction 63% Copy Copies To 1: PIA MARY MD, BASHAR J MD Jan 22, 2022 15:07
== END ==
LOC: CARD 07:15
PROVIDERS: ATTEND Physician Assistant
DX: I10 Essential (primary) hypertension (principal)
CPT/HCPCS: 78452; 93017; A9502

== ENCOUNTER → 2022-12-19 | Outpatient (CLI) | payer OTHER ==
[~2022-12-19] MED LIST changes: -CATHETER FLUSH 10 ML SYR IVP PRN
--- NOTE | 2022-12-19 16:38 | Diagnostic Imaging Report ---
INDICATION: Routine screening. COMPARISON: 11/01/2021 and 10/22/2020. TECHNIQUE: 2D and 3D bilateral screening mammography was performed with CAD. FINDINGS: Both breasts are heterogeneously dense, limiting the sensitivity of mammography. The parenchymal pattern is stable. No mass or malignant-appearing microcalcifications are seen. There are benign calcifications. The axillae are unremarkable. IMPRESSION: No mammographic features suspicious for malignancy are identified. ACR BI-RADS Category 2: Benign findings. Result letter will be mailed to the patient. Note: At least 10% of breast cancer is not imaged by mammography. Dictated on workstation # [id number]
== END ==
LOC: RAD 15:15
PROVIDERS: ATTEND Nurse Practitioner
DX: Z12.31 Encounter for screening mammogram for malignant neoplasm of breast (principal)
CPT/HCPCS: 77063; 77067